=== PATIENT | female | born 1950 | race Caucasian/White ===

== ENCOUNTER → 2017-01-30 | Outpatient (CLI) | payer OTHER, BC ==
[~2017-01-30] MED LIST: AMLO10TA2 PO; CITA10TA4 PO; CLON1TAB3 PO; LEVO88TA3 PO; LOSA100T33 PO; POTA99TA PO; SIMV40TA2 PO; TORS20TA2 PO; ZOLP10TA6 PO
--- NOTE | 2017-01-30 13:17 | DIAGNOSTIC IMAGING REPORT ---
BILATERAL KNEE RADIOGRAPHS CLINICAL HISTORY: Bilateral knee pain. COMPARISON: None FINDINGS: Right knee: There is no acute fracture or suspicious lesion. No joint effusion is present. There is mild to moderate medial compartment joint space narrowing with lateral patellar tilt and complete loss of the lateral patellofemoral joint space. There is moderate osteophytosis. A few calcific suprapatellar densities are noted. Left knee: Alignment of left knee is anatomic. There is moderate to severe medial compartment joint space narrowing. There is moderate patellofemoral joint space narrowing. There is osteophytosis. There is no fracture or suspicious lesion. There is a small left knee joint effusion. IMPRESSION: Right knee: 1. Severe osteoarthritis of the patellofemoral compartment with moderate arthritis within the medial compartment. 2. No acute fracture or joint effusion of the right knee. Left knee: 1. Moderate to severe osteoarthritis within the medial and patellofemoral compartments of the left knee. 2. Small left knee joint effusion. Electronically signed by: Pop Arias M.D. 01/30/2017 1:15 PM Dictated Date/Time: 01/30/2017 1:10 PM
== END | disposition home or self-care (01) ==
LOC: C.RDSM 13:51
PROVIDERS: ATTEND Physician Assistant
DX: M25.562 Pain in left knee (principal); M25.561 Pain in right knee

== ENCOUNTER → 2017-02-16 | Outpatient (CLI) | payer OTHER, BC | END | disposition home or self-care (01) | LOC: C.RDSM 12:53 | PROVIDERS: ATTEND Physical Medicine & Rehabilitation Sports Medicine | DX: M19.011 Primary osteoarthritis, right shoulder (principal); M75.102 Unspecified rotator cuff tear or rupture of left shoulder, not specified as traumatic ==